=== PATIENT | female | born 1995 | race American Indian/Alaskan Native ===

== ENCOUNTER 2018-12-28 09:03 | Emergency (ER) | payer MEDICAID ==
[2018-12-28 09:22] VITALS: RESP 18; O2SAT 100
[2018-12-28] MEDS ORDERED: Sodium Chloride 0.9% 500 ML IV STA (09:46)
--- NOTE | 2018-12-28 09:54 | ED PDOC ---
Arrival/HPI - General Chief Complaint: Abdominal Pain Time Seen by Provider: 12/28/18 09:22 Historian: Patient - History of Present Illness Narrative History of Present Illness (Text): 12/28/18 09:51 23-year-old female G1, P0 status post surgical on December 22 presents today with lower abdominal cramping and vaginal bleeding. Patient states she has slight spotting. No chest pain or shortness of breath. No back pain. No urinary symptoms. No dizziness or weakness. Patient states this is her first time being in her first time having an . No other complaints. Past Medical History - Provider Review Nursing Documentation Reviewed: Yes - Travel History Have you recently traveled outside [place] w/in the past 3 mons?: No - Infectious Disease Hx of Infectious Diseases: None - Psychiatric Hx Substance Use: No - Anesthesia Hx Anesthesia: No Hx Anesthesia Reactions: No Hx Malignant Hyperthermia: No Family/Social History - Physician Review Nursing Documentation Reviewed: Yes Family/Social History: Unknown Family HX Smoking Status: Never Smoked Hx Alcohol Use: Yes Frequency of alcohol use: Socially Hx Substance Use: No Allergies/Home Meds Allergies/Adverse Reactions: Allergies No Known Allergies Allergy (Verified 12/28/18 09:22) Home Medications: Home Meds Medication Instructions Recorded Confirmed No Known Home Med 12/28/18 12/28/18 Review of Systems - Review of Systems Constitutional: absent: Fatigue, Fevers Respiratory: absent: SOB, Cough Cardiovascular: absent: Chest Pain, Palpitations Gastrointestinal: Abdominal Pain, Nausea. absent: Constipation, Diarrhea, Vomiting Genitourinary Female: Vaginal Bleeding. absent: Dysuria, Frequency, Hematuria, Vaginal Discharge Musculoskeletal: absent: Arthralgias, Back Pain, Neck Pain Skin: absent: Rash, Pruritis Neurological: absent: Headache, Dizziness Psychiatric: absent: Anxiety, Depression Physical Exam Vital Signs Reviewed: Yes Vital Signs Temp Pulse Resp BP Pulse Ox 12/28/18 09:15 98.7 F 87 18 96/64 L 100 Temperature: Afebrile Blood Pressure: Normal Pulse: Regular Respiratory Rate: Normal Appearance: Positive for: Well-Appearing, Non-Toxic, Comfortable Pain Distress: None Mental Status: Positive for: Alert and Oriented X 3 - Systems Exam Head: Present: Atraumatic Mouth: Present: Moist Mucous Membranes Neck: Present: Normal Range of Motion Respiratory/Chest: Present: Clear to Auscultation, Good Air Exchange. No: Respiratory Distress, Accessory Muscle Use Cardiovascular: Present: Regular Rate and Rhythm, Normal S1, S2. No: Murmurs Abdomen: Present: Tenderness (minimal suprapubic tenderness). No: Distention, Peritoneal Signs, Rebound, Guarding Genitourinary/Pelvic Exam: Present: Normal External Genitalia, Vaginal Bleeding (minimal brown discharge/bleeding noted), Other (chaparoned by Lolly HART EMT). No: Vaginal Lesions, Adenexal Tenderness, Adenexal Mass, Cervical Motion Tendernes Back: Present: Normal Inspection. No: CVA Tenderness, Midline Tenderness, Paraspinal Tenderness Upper Extremity: Present: Normal ROM Lower Extremity: Present: Normal ROM Neurological: Present: GCS=15, Speech Normal Skin: Present: Warm, Dry, Normal Color. No: Rashes Psychiatric: Present: Alert, Oriented x 3 Medical Decision Making ED Course and Treatment: 12/28/18 09:54 pt is non toxic well appearing; no distress. stable vitals. c/o lower abd pain and vaginal spotting s/p on . cbc; wbc; 2.7 cmp: wnl beta: 448 type/screen: o + US; FINDINGS: UTERUS: Measures 9.1 x 6.4 x 6.8 cm. Normal in size and appearance. No fibroid or other mass lesion seen. ENDOMETRIUM: Mildly distended with fluid. Accurate endometrial measurement was not obtained as the measurements provided included the endometrial fluid. Endometrium is thin and otherwise normal in appearance. CERVIX: No cervical abnormality identified. RIGHT OVARY: Measures 3.0 x 2.1 x 2.6 cm. No solid mass. Normal flow. LEFT OVARY: Measures 2.4 x 1.1 x 1.3 cm. No solid mass. Normal flow. FREE FLUID: Trace cul-de-sac free fluid noted. OTHER FINDINGS: None. IMPRESSION: Mild endometrial fluid. pt reassessment: pt is non toxic well appearing; no distress. Advised patient of low white blood cell count and need for follow-up with the primary care physician. all results discussed with patient in depth; pt was advised to f/u with flight control specialist within the next 2 days. pt was advised to return immediately if symptoms worsen,persist or if new symptoms develop. copy of Beta hcg results impression; vaginal bleeding s/p increase fluids tylenol every 4 hours as needed for pain Follow-up with the primary care physician regarding your low white blood cell count follow up with the DATA PROCESSING OPERATOR within the next 2 days return immediately if symptoms worsen, persist or if new symptoms develop. - RAD Interpretation Radiology Orders: 12/28/18 09:37 TRANSVAGINAL [US] Stat - Medication Orders Current Medication Orders: Sodium Chloride (Sodium Chloride 0.9%) 500 mls @ 999 mls/hr IV .Q31M STA Stop: 12/28/18 10:16 Disposition/Present on Arrival - Present on Arrival Any Indicators Present on Arrival: No History of DVT/PE: No History of Uncontrolled Diabetes: No Urinary Catheter: No History of Decub. Ulcer: No History Surgical Site Infection Following: None - Disposition Have Diagnosis and Disposition been Completed?: Yes Diagnosis: Vaginal bleeding, Status post elective Disposition: HOME/ ROUTINE Disposition Time: 09:58 Patient Plan: Discharge Condition: GOOD Discharge Instructions (ExitCare): Acute Pelvic Pain (DC), Bleeding With Additional Instructions: increase fluids tylenol every 4 hours as needed for pain follow up with the DATA PROCESSING OPERATOR within the next 2 days return immediately if symptoms worsen, persist or if new symptoms develop. Referrals: Donna Griffin MD [Staff Provider] - Follow up with primary Leighann Whitfield MD [Medical Doctor] - Follow up with primary [facility] [Outside] - [facility] with [facility] [Outside] - Follow up with primary Forms: [employer] (Khmer), WORK NOTE
--- NOTE | 2018-12-28 10:42 | US ---
Date of service: 12/28/2018 HISTORY: pain s/p surgical COMPARISON: None available. TECHNIQUE: Grayscale, color Doppler and spectral evaluation the pelvis performed transvaginally FINDINGS: UTERUS: Measures 9.1 x 6.4 x 6.8 cm. Normal in size and appearance. No fibroid or other mass lesion seen. ENDOMETRIUM: Mildly distended with fluid. Accurate endometrial measurement was not obtained as the measurements provided included the endometrial fluid. Endometrium is thin and otherwise normal in appearance. CERVIX: No cervical abnormality identified. RIGHT OVARY: Measures 3.0 x 2.1 x 2.6 cm. No solid mass. Normal flow. LEFT OVARY: Measures 2.4 x 1.1 x 1.3 cm. No solid mass. Normal flow. FREE FLUID: Trace cul-de-sac free fluid noted. OTHER FINDINGS: None. IMPRESSION: Mild endometrial fluid.
[2018-12-28 10:54] LABS: BASO # 0.01 K/mm3 (0.0-2.0); BASO % 0.4 % (0.0-3.0); EOS # 0.1 (0.0-0.7); EOS % 2.2 % (1.5-5.0); HEMOGLOBIN 11.2 g/dL (12.0-16.0); LYMPH # 1.1 (1.2-3.4); MEAN CELL VOLUME 79.9 fl (80.0-105.0); MEAN CORPUSCULAR HEMOGLOBIN 25.6 pg (25.0-35.0); MONO # 0.1 (0.1-0.6); PLATELET COUNT 240 10^3/uL (120.0-450.0); RBC 4.38 10^6/uL (3.5-6.1); RED CELL DISTRIBUTION WIDTH 16.9 % (11.5-14.5); WHITE BLOOD COUNT 2.7 10^3/uL (4.5-11.0)
[2018-12-28 10:55] LABS: BLOOD UREA NITROGEN 9 mg/dL (7-21); CALCIUM 9.1 mg/dL (8.4-10.5); GFR NON-AFRICAN AMERICAN > 60
[2018-12-28 11:06] LABS: ALB/GLOB RATIO 1.2 (1.1-1.8); ALBUMIN 4.1 g/dL (3.0-4.8); ALT/SGPT 19 U/L (7-56); AST/SGOT 35 U/L (14-36)
[2018-12-28 11:45] LABS: URINE BILIRUBIN NEGATIVE (NEGATIVE); URINE BLOOD MODERATE (NEGATIVE); URINE GLUCOSE (UA) NEGATIVE (NEGATIVE); URINE LEUKOCYTE ESTERASE NEGATIVE Leu/uL (NEGATIVE); URINE PROTEIN NEGATIVE mg/dL (<30 mg/dL); URINE UROBILINOGEN 0.2 E.U./dL (<1 E.U./dL)
[2018-12-28 11:47] LABS: URINE APPEARANCE CLEAR (CLEAR); URINE COLOR YELLOW (YELLOW)
[2018-12-28 11:53] LABS: URINE BACTERIA MANY /hpf; URINE RBC 20 - 25 /hpf (0-2)
[2018-12-28 11:54] LABS: URINE EPITHELIAL CELLS MANY /hpf (0-5)
[2018-12-28 12:54] VITALS: BP 104/72; PULSE 84; TEMP 98
== END 2018-12-28 13:03 | disposition home or self-care (01) ==
LOC: EDBD → ED 09:03
DX: N99.821 Postprocedural hemorrhage of a genitourinary system organ or structure following other procedure (principal); Y83.8 Other surgical procedures as the cause of abnormal reaction of the patient, or of later complication, without mention of misadventure at the time of the procedure
CPT/HCPCS: 76830; 80053; 81001; 84702; 85025; 86850; 86900; 99283; J7040